=== PATIENT | male | born 1990 | race Caucasian/White ===

== ENCOUNTER 2016-07-08 12:36 | Inpatient (IN) | payer OTHER ==
--- NOTE | ~2016-07-08 | DS ---
Unit #: [id number] #: [id number] Patient: SHAHID DING [id number] [facility] [address] [place] [address] [id number] MR#: [id number] NAME: SHAHID DING ROOM: P202 Age: 26 Sex: M Admission Date: 07/08/2016 : 1990 Discharge Date: 07/10/2016 Attending Physician: Rosales Malik M.D. Primary Care Physician: Primary Care Physician No DISCHARGE SUMMARY REASON FOR ADMISSION The patient is a 26-year-old white male, admitted to the [facility] unit for opioid detox. HOSPITAL COURSE The patient was admitted to the [facility] unit and placed on suicide precautions. Remeron was increased to 45 mg at h.s. to address depressive symptoms and he was continued on previously prescribed Vistaril, Clinoril, and Lopressor. The patient's withdrawal symptoms resolved rapidly and by 07/10/2016, the patient requested discharge with followup to take place in the intensive outpatient program provided this facility. Discharge was ordered. FINAL DIAGNOSES Opioid use disorder, dysthymic disorder, hypertension, osteoarthritis. DISPOSITION ON DISCHARGE The patient is discharged on the following medications: Remeron 45 mg at h.s. for anxiety and depression, Vistaril 50 mg q.6 hours p.r.n. anxiety, Clinoril 200 mg b.i.d. for osteoarthritis, Lopressor 25 mg b.i.d. for hypertension. DISCHARGE INSTRUCTIONS No dietary or physical restrictions were placed upon the patient at the time of discharge. FOLLOWUP Followup will take place in the intensive outpatient program provided by this facility. PROGNOSIS The patient's prognosis is considered fair. Dictated by... Rosales Malik M.D. CB/juan jose TD: 07/10/2016 23:01 JOB #: [id number] Unit #: [id number] #: [id number] Patient: SHAHID DING DISCHARGE SUMMARY X Rosales Malik MD X DISCHARGE SUMMARY
--- NOTE | ~2016-07-08 | PA ---
Unit #: [id number] #: [id number] Patient: SHAHID DING [id number] [place] [address] [id number] MR#: [id number] NAME: SHAHID DING ROOM: P202 Age: 26 Sex: M Admission Date: 07/08/2016 : 1990 Date of Assessment: 07/09/2016 Attending Physician: Rosales Malik M.D. Admitting Physician: Rosales Malik M.D. Primary Care Physician: Primary Care Physician No PSYCHIATRIC ASSESSMENT DATE 07/09/2016 IDENTIFYING INFORMATION The patient is a 26-year-old white male admitted to [address] [place] [address] with a history of benzodiazepines and opioid abuse CHIEF COMPLAINT None given INFORMANT(S) Patient RELIABILITY Fair HISTORY OF PRESENT ILLNESS The patient is a 26-year-old single white male with a lengthy history of opioid and benzodiazepines abuse. The patient denies abuse of intravenous drugs. The patient reports previous treatment at this facility and has been on a host of medications including Remeron, multivitamins, Vistaril, Toprol, Voltaren, Flexeril and Neurontin. The patient reports that he has worked in the intensive outpatient program in this facility in the past and has been able to maintain sobriety. The patient exhibited a CIWA score of 15 on admission and has also been abusing opiates. He is currently denying suicidal or homicidal ideation. PAST PSYCHIATRIC HISTORY He denies recent changes in sleep or appetite. PAST MEDICAL HISTORY Significant for a history of chronic pain. MEDICATIONS 1. Multivitamins 2. Vistaril 3. Toprol 4. Voltaren 5. Flexeril 6. Neurontin ALLERGIES None Unit #: [id number] #: [id number] Patient: SHAHID DING FAMILY HISTORY Noncontributory SOCIAL HISTORY The patient lives with his fiance and mother. He has been employed at [employer], but he is not presently working. He completed high school. He reports substance abuse as noted previously. He denies any history of intravenous drug use. MENTAL STATUS EXAMINATION At this time reveals the patient to be a thin, whit male, appearing his staged age. He appears to be in moderate physical distress and not as anxious. He is awake, alert, and oriented in all spheres. His mood is mildly dysphoric. His affect constricted. Speech is generally relevant and coherent. There are no gross deficits in memory or cognition noted. Intelligence is judged to be in the average range based on fund of knowledge. The patient is cooperative throughout the interview. He is currently denying suicidal or homicidal ideation, denies any psychotic symptoms. His judgment and insight are noted to be intact. ASSETS Motivation for change. LIABILITIES Lack or resources. DIAGNOSTIC IMPRESSION 1. Opioid use disorder 2. Sedative narcotic use disorder 3. Dysthymic disorder 4. Chronic pain 5. Hypertension TREATMENT PLAN The patient remains hospitalized for safety and stabilization. I will increase Remeron to 45 mg at bedtime and we will add p.r.n. melatonin for sleep. Routine detoxification protocol has been ordered. ESTIMATED LENGTH OF STAY 3-5 days FOLLOWUP To take place through the auspices of the intensive outpatient program provided by this facility. Dictated by... Rosales Malik M.D. CB/marzena TD: 07/09/2016 15:21 JOB #: [id number] Unit #: [id number] #: [id number] Patient: SHAHID DING PSYCHIATRIC ASSESSMENT X Rosales Malik MD PSYCHIATRIC ASSESSMENT
--- NOTE | ~2016-07-08 | A ---
[facility] Nutrition Therapy DATE: 07/10/16 Patient: SHAHID CARRASCO TOÑA Physician: MARIE Address: [address] Room/Bed: [address], Zip: [place] [address] Admit Date: 07/08/16 Date of : [birth year] Height: 6 4 Weight: 118 53.663503 NUTRITIONAL ASSESSMENT: REASON: Low BMI + 1 point malnutrtion risk score for unintentional weight loss + MD consult related to low BMI Admitting Dx: 26 y/o male admitted with anxiety, undergoing detox from heroin and benzos PMH: PSA Anthropometrics: Ht: 76", Wt: 119 lbs, BMI: 14.5, 59% IBW Labs: 07/09: ALT 50 Meds: Mag-Al, Milk of Mg, Loperamide, Phenergan/Zofran, Melatonin, Thiamine, Folic acid, MVI, Balance B-50, psych meds noted (Remeron, etc.) Assessment: Chart reviewed, events noted. Patient working at [employer] but has not attended work x 1 week, lives with mom and valerieancee. Patient on CIAZ protocol, undergoing detox from benzos and heroin. RD consulted due to patient's low BMI, he is clinically underweight. He is on a regular diet, scored 1 point malnutrition risk score for weight loss. Although no loss was reported during the needs assessment the patient himself confirms a mild weight loss of an unknown amount due to his drug abuse. Past weight of 130 lbs in April of 2014 shows a possible loss of approx. 11 lbs in an unknown time frame. The patient does report a poor appetite upon admission but states he has been eating much better since being admitted to [facility], RD spoke with patient while he was in group therapy. He was extremely pleasant cooperative, agreed to chocolate Ensure shakes BID however he says he will probably be discharged tomorrow. RD tried to encourage 3 meals per day while at home and snacks as needed, still want patient to try Ensure and will send large portion entrees with lunch and dinner- will notify [facility] staff and send Ensure with dinner today. Note that the patient is on Remeron which may increase his appetite and promote weight gain. See RD recs below, will follow detox course. Dx: Underweight r/t drug abuse AEB BMI 14.5, 59% IBW, 1 point malnutrition risk score, MD consult. Intervention: Large entrees, Ensure BID Monitoring, Evaluation and Goals: 1. Adequate oral intake > 75% of meals/supp. 2. Gradual weight gain towards a healthy BMI range. Monitor: Per protocol, criteria to determine if above goals met [facility] Nutrition Therapy DATE: 07/10/16 Patient: SHAHID DING Physician: MARIE Address: [address] [place] [address] Room/Bed: [address], Zip: [place] [address] Admit Date: 07/08/16 Date of : [birth year] Height: 6 4 Weight: 118 53.594681 Recommendations: 1. Continue regular diet, appreciate staff to encourage adequate oral intake, will send large portion entree with lunch and dinner. 2. Patient agreed to try Ensure- will send chocolate BID to increase oral kcal/protein intake. 3. Please weigh q 3 days for monitoring purposes, as the patient is underweight. Moderate nutrition risk Will follow Respectfully, Gloria Greer RD, LD [facility] cc: client file
--- NOTE | ~2016-07-08 | HP ---
Unit #: [id number] #: [id number] Patient: SHAHID DING [id number] [place] [address] [id number] MR#: [id number] NAME: SHAHID DING ROOM: P202 Age: 26 Sex: M Admission Date: 07/08/2016 : 1990 Attending Physician: Rosales Malik M.D. Admitting Physician: Rosales Malik M.D. Primary Care Physician: Primary Care Physician No HISTORY AND PHYSICAL HISTORY OF PRESENT ILLNESS The patient is a 26-year-old male admitted to [address] [place] [address] on 07/08/2016 for anxiety and to detox from benzos and heroin. PAST MEDICAL HISTORY The patient reports a heart dysrhythmia but could not elaborate. PAST SURGICAL HISTORY The patient denies. SOCIAL HISTORY The patient works at [employer]. He lives with him mom and fiance. He smokes E-cigarettes, uses one point of heroin every other day and 1 mg of benzos daily. FAMILY MEDICAL HISTORY Noncontributory. ALLERGIES No known drug allergies. CURRENT MEDICATIONS 1. Remeron 2. Vistaril 3. Neurontin REVIEW OF SYSTEMS CONSTITUTIONAL: No fever or chills. HEENT: Denies any sore throat, ear pain or runny nose. CARDIOVASCULAR: Denies chest pain, irregular heart rhythm or palpitations. CHEST: Denies shortness of breath or cough. No hemoptysis. GASTROINTESTINAL: Denies nausea, vomiting, diarrhea or chronic constipation. ENDOCRINE: Denies history of increased thirst or urination. No recent significant weight loss or gain. GENITOURINARY: Denies dysuria, frequency, or hematuria. SKIN: Denies any rashes. HEMATOLOGIC: Denies history of increased bleeding or bruising. MUSCULOSKELETAL: Denies any hot, swollen joints. No generalized muscle pain. NEUROLOGIC: Denies problems with vision or speech. No frequent, severe headaches. No numbness, tingling or weakness in any extremities. Denies loss of bladder or bowel control. Unit #: [id number] #: [id number] Patient: SHAHID DING PHYSICAL EXAM GENERAL: He is awake, alert and oriented in no acute distress. VITAL SIGNS: Temperature 97.4, heart rate 87, respiration 16, blood pressure 116/77. HEIGHT: 6'4". WEIGHT: 119 pounds. SKIN: Warm and dry without rash or lesion. HEENT: Normocephalic. TMs not viewed. Oral and nasal passages clear. Conjunctivae clear. PERRLA. EOMs intact. NECK: Supple without lymphadenopathy or thyromegaly. HEART: Regular rate and rhythm without murmur. LUNGS: Clear. ABDOMEN: Soft, nontender. : Not done. EXTREMITIES: No evidence of cyanosis, clubbing or edema. Moves all without focal deficit. NEUROLOGICAL: Grossly within normal limits. Cranial Nerves: II: Visual mohr are intact. III, IV AND : Extraocular movements are intact. Pupils are equal, round and reactive to light. V: Facial sensation is grossly normal. VII: Facial movements and expression are normal. VIII: Auditory acuity grossly intact. IX, X: Uvula is midline. Phonation is normal. XI: Patient shrugs shoulders and turns head normally. XII: Tongue protrudes in the midline. Sensory and Motor Function: Sensory and motor sensation is grossly normal. Motor: moves all extremities well. IMPRESSION 1. Psychiatric admission. 2. Heart dysrhythmia. 3. Heroin dependence. RECOMMENDATIONS Psychiatric per psychiatrist. MEDICAL: No contraindication to participate in facility activities. MEDICAL PROGNOSIS Good. MEDICAL CONDITION Stable. Dictated by... Brad Story/ranjana TD: 07/10/2016 04:02 JOB #: [id number] Unit #: [id number] #: [id number] Patient: SHAHID DING HISTORY AND PHYSICAL X MARIE CAZARES APRN HISTORY AND PHYSICAL
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
[2016-07-09 12:55] LABS: BASOPHIL% 0.4 % (0-2.5); EOSINOPHIL# 0.1 X10e3 (0-0.7); EOSINOPHIL% 0.8 % (0.0-7.0); HEMATOCRIT 44.4 % (38.0-50.0); HEMOGLOBIN 14.9 gm/dL (13.0-16.0); LYMPHOCYTE# 1.7 X10e3 (1.0-3.5); LYMPHOCYTE% 23.4 % (17.0-45.0); MEAN CELL VOLUME 85.4 FL (83-96); MEAN CORPUSCULAR HEMOGLOBIN 28.6 PG (28-34); MEAN CORPUSCULAR HGB CONC 33.5 g/dL (30-36); MEAN PLATELET VOLUME 8.9 FL (6.5-11.5); MONOCYTE# 0.3 X10e3 (0-1.0); MONOCYTE% 4.5 % (3.0-12.0); NEUTROPHIL# 5.2 X10e3 (1.5-7.1); NEUTROPHIL% 70.9 % (40-75); PLATELET COUNT 354 X10e3 (140-420); RED CELL DISTRIBUTION WIDTH 13.2 % (11.0-15.5); WHITE BLOOD COUNT 7.3 X10e3 (4.0-10.5)
[2016-07-09 12:57] LABS: DIFF IND NO
[2016-07-09 13:03] LABS: URINE APPEARANCE CLEAR; URINE BILIRUBIN NEG (NEG); URINE BLOOD NEG (NEG); URINE COLOR DK YELLOW; URINE GLUCOSE NEG (NEG); URINE KETONE NEG (NEG); URINE LEUKOCYTE ESTERASE NEG (NEG); URINE NITRATE NEG (NEG); URINE PH 6.5 (5-8); URINE PROTEIN NEG (NEG); URINE SPECIFIC GRAVITY 1.016 (1.003-1.035); URINE UROBILINOGEN 0.2 MG/DL (NEG)
[2016-07-09 13:27] LABS: AMPHETAMINE NEG (NEG); BARBITURATES NEG (NEG); BENZODIAZEPINES NEG (NEG); COCAINE NEG (NEG); MARIJUANA NEG (NEG); OPIATES NEG (NEG); TRICYCLIC ANTIDEPRESSANTS POS (NEG); U METHADONE NEG (NEG)
[2016-07-09 13:28] LABS: ALBUMIN SERUM 4.2 g/dL (3.5-5.0); ALKALINE PHOSPHATASE 79 U/L (32-92); ALT (SGPT) 50 U/L (10-40); AST (SGOT) 36 U/L (10-42); BILIRUBIN,TOTAL 0.6 mg/dL (0.2-2.0); BLOOD UREA NITROGEN 11 mg/dL (9-23); BUN/CREATININE RATIO 15.71; CALCIUM SERUM 9.4 mg/dL (8.4-10.2); CARBON DIOXIDE 29 mmol/L (22-31); CHLORIDE 101 mmol/L (100-111); CREATININE SERUM 0.7 mg/dL (0.6-1.4); GLOM FILT RATE Estimated ABOVE60 mL/min (>60); GLUCOSE FASTING 107 mg/dL (70-110); POTASSIUM 4.5 mmol/L (3.5-5.1); PROTEIN TOTAL SERUM 7.2 g/dL (6.0-8.3); SODIUM 139 mmol/L (135-145)
[2016-07-09 13:34] LABS: THYROID STIMULATING HORMONE 0.78 uIU/ml (0.34-5.60)
[2016-07-09 13:41] LABS: FREE THYROXIN (T4) 0.72 ng/dL (0.58-1.64)
== END 2016-07-10 14:21 | DRG 897 ==
LOC: P2S 12:36
PROVIDERS: Specialist
PROC: HZ2ZZZZ Detoxification Services for Substance Abuse Treatment (ICD-10-PCS; principal; 2016-07-08)
DX: F11.20 Opioid dependence, uncomplicated (principal); I10 Essential (primary) hypertension; F32.9 Major depressive disorder, single episode, unspecified; F13.10 Sedative, hypnotic or anxiolytic abuse, uncomplicated; F34.1 Dysthymic disorder; M19.90 Unspecified osteoarthritis, unspecified site
CPT/HCPCS: 80053; 80307; 81003; 84439; 84443; 85025; 86592